=== PATIENT | male | born 1960 | race Caucasian/White ===

== ENCOUNTER → 2016-10-29 | Outpatient (CLI) | payer BC, OTHER ==
--- NOTE | 2016-10-29 13:05 | CT ---
EXAMINATION TYPE: CT chest w con DATE OF EXAM: 10/29/2016 11:26 AM COMPARISON: Radiograph 05/18/2016 HISTORY: 56-year-old male with lung mass TECHNIQUE: Contiguous axial scanning of the chest after the administration of 100 mL of Omnipaque 300 . Coronal/sagittal reconstructions performed. CT DLP: 391.9mGycm. Automatic exposure control utilized for a dose reduction. FINDINGS: The heart is normal size without pericardial effusion. Coronary vessel calcifications are present in remarkable for coronary artery disease. 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 There is conventional arch vessel branching anatomy. No thoracic lymphadenopathy by CT size criteria. Calcified left hilar lymph nodes compatible with ramona or granulomatous disease. The peripheral left basilar nodular density on recent radiographs corresponds to a 7 mm calcified gra nuloma. No consolidation or pleural effusion. No suspicious pulmonary nodule or mass. Visualized upper abdomen shows no gross of pneumonia. Bones: Endplate spondylosis mid to lower thoracic spine with multilevel degenerative disc disease. IMPRESSION: 1. Radiographic findings at the left hilum and peripheral left base correspond to prior granulomatous disease. No suspicious pulmonary nodule or mass. 2. Mild aneurysm ascending aorta (4.0 cm).
== END | disposition home or self-care (01) ==
LOC: RADCTMAIN 10:57
PROVIDERS: ATTEND Internal Medicine Critical Care Medicine
DX: R91.8 Other nonspecific abnormal finding of lung field (principal)
CPT/HCPCS: 71260; Q9967

== ENCOUNTER 2021-09-19 11:50 | Day surgery (SDC) | payer BC, OTHER ==
[2021-09-16 14:53] VITALS: BMI 25.4
[~2021-09-19 11:50] MED LIST: LACTATED RINGERS 1,000 ML IV SCH
[2021-09-19 12:13] VITALS: TEMP 97.2
[2021-09-19] MEDS ORDERED: PROPOFOL 10 MG/ML 20 ML VIAL IV ONE (12:41)
[2021-09-19] MEDS ORDERED: LIDOCAINE 1% INJ 10MG/ML (20 ML MDV) ONE (12:41)
--- NOTE | 2021-09-19 13:01 | P.PCN ---
Date of Procedure: 09/19/21 Procedure(s) Performed: Brief history: Patient is a pleasant 61-year-old white female scheduled for an elective upper endoscopy as well as colonoscopy as a part of evaluation of GERD/Sabillon's esophagus and screening for colon cancer Procedure performed: Esophagogastroduodenoscopy with biopsy Colonoscopy with biopsy Preoperative diagnosis: GERD/Sabillon's esophagus Screening for colon cancer Anesthesia: MAC Procedure: After informed consent was obtained from the patient was brought into the en doscopy unit and IV sedation was administered by anesthesia under continuous monitoring. Initially upper endoscopy was done. The Olympus GF 160 video endoscope was inserted inserted into the mouth and esophagus intubated without any difficulty and was gradually advanced into the stomach and duodenum and carefully examined. The bulb and second part of the duodenum appeared normal. The scope was then withdrawn into the stomach adequately insufflated with air and upon careful examination the antrum and body, cardia and fundus appeared normal. The scope was then withdrawn into the esophagus. Small sliding type hiatal hernia noted. The GE junction was located at 40 cm to the incisors. There were superficial erosions at the GE junction consistent with LA grade B reflux esophagitis. The short segment of Sabillon's esophagus with a tongue of Sabillon's appearing mucosa extending 5 cm proximal to the GE junction that was biopsied. Rest of the esophagus appeared normal. Patient tolerated the procedure well. At this time the patient continued to remain sedation. Initial digital rectal examination was normal. Olympus CF 160 video colonoscope was then inserted into the rectum and gradually advanced to the cecum without any difficulty. Careful examination was performed as the scope was gradually being withdrawn. The prep was excellent. The cecum, ascending colon appeared normal. The transverse colon there was a 3 mm polyp that was removed by cold biopsy. In the sigmoid colon there was a 5 mm polyp removed by cold biopsy. Rest of the, transverse colon, descending colon, sigmoid colon and rectum appeared normal. Scattered sigmoid diverticulosis seen. Retroflexion was performed in the rectum and no lesions were noted. Patient tolerated the procedure well. Impression: 1. Upper Endoscopy revealed short segment Sabillon's esophagus, small hiatal hernia and LA grade B reflux esophagitis 2. Colonoscopy revealed 5 mm transverse colon polyp and a 3 mm sigmoid colon polyp status post cold biopsy and Moderate sigmoid diverticulosis Recommendations: Findings of this examination were discussed with the patient as well as her family. He was advised to follow with the biopsy results. He will continue with omeprazole 20 mg daily and follow antireflux measures. If the biopsy of the colon polyps with adenoma he can have a repeat colonoscopy in 5 years
[2021-09-19 13:06] VITALS: PULSE 50
[2021-09-19 13:25] VITALS: BP 131/74; RESP 16
== END 2021-09-19 13:52 | disposition home or self-care (01) ==
LOC: ORWHC2ENDO 11:50
PROVIDERS: ATTEND Internal Medicine Gastroenterology
DX: Z12.11 Encounter for screening for malignant neoplasm of colon (principal); D12.5 Benign neoplasm of sigmoid colon; D12.3 Benign neoplasm of transverse colon; K57.30 Diverticulosis of large intestine without perforation or abscess without bleeding; K22.70 Barrett's esophagus without dysplasia; K21.00 Gastro-esophageal reflux disease with esophagitis, without bleeding; K44.9 Diaphragmatic hernia without obstruction or gangrene; I10 Essential (primary) hypertension; E78.5 Hyperlipidemia, unspecified; Z87.442 Personal history of urinary calculi; Z87.19 Personal history of other diseases of the digestive system; Z79.899 Other long term (current) drug therapy
CPT/HCPCS: 88305; 45380; 43239; J2001; J2704

== ENCOUNTER 2025-02-21 08:10 | Day surgery (SDC) | payer BC, OTHER ==
[2025-02-21 08:41] VITALS: RESP 16; TEMP 97.2
[2025-02-21] MEDS: LACTATED RINGERS 1,000 ML IV SCH (08:45)
[2025-02-21] MEDS: LIDOCAINE 1% (10MG/ML) FOR IV START INTRADERMA STA (08:46)
[2025-02-21] MEDS: IV FLUID CONTINUATION 1,000 ML IV ONE (08:46)
[2025-02-21] MEDS ORDERED: LIDOCAINE 1% INJ 10MG/ML (20 ML MDV) ONE (09:36)
[2025-02-21] MEDS ORDERED: PROPOFOL 10 MG/ML 20 ML VIAL IV ONE (09:36)
--- NOTE | 2025-02-21 09:58 | P.PCN ---
Date of Procedure: 02/21/25 Procedure(s) Performed: BRIEF HISTORY: Patient is a 64-year-old, pleasant, white man scheduled for an upper endoscopy as above evaluation of longstanding history of GERD/Sabillon's esophagus and intermittent dysphagia to solids. PROCEDURE PERFORMED: Esophagogastroduodenoscopy with biopsy.. PREOPERATIVE DIAGNOSIS: GERD/Sabillon's esophagus/intermittent dysphagia to solids. IV sedation per anesthesia. PROCEDURE: After informed consent was obtained, the patient was brought into the endoscopy unit. IV sedation was administered by Anesthesia under continuous monitoring. Initially the Olympus GIF-140 video endoscope was inserted into the mouth. Esophagus intubated without any difficulty. It was gradually advanced into the stomach and duodenum and carefully examined. The bulb and the second part of the duodenum appeared normal. The scope at this time was withdrawn to the stomach, adequately insufflated with air, and upon careful examination, mucosa of the antrum, body, cardia and the fundus appeared normal. The scope was then withdrawn into the esophagus. Small hiatal hernia noted. The GE junction was located at 41 cm from the incisors. There was a long segment of Sabillon's esophagus extending from the neck to 41 cm from the incisors and multiple biopsies were done from this area. The esophagus appeared normal. There were no erosions or ulcerations seen and the patient tolerated the procedure well. IMPRESSION: 1. 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 2. Small hiatal hernia. RECOMMENDATIONS: The findings of this examination were discussed with the patient as well as his family. He was advised to follow the biopsy results. If the biopsy does not show evidence of dysplasia, he can have repeat upper endoscopy in 3 years..
[2025-02-21 10:16] VITALS: BP 133/72; PULSE 45
== END 2025-02-21 10:38 | disposition home or self-care (01) ==
LOC: ORWHC2ENDO 08:10
PROVIDERS: ATTEND Internal Medicine Gastroenterology
DX: K22.70 Barrett's esophagus without dysplasia (principal); K44.9 Diaphragmatic hernia without obstruction or gangrene; K21.9 Gastro-esophageal reflux disease without esophagitis; I10 Essential (primary) hypertension; E78.5 Hyperlipidemia, unspecified; I49.9 Cardiac arrhythmia, unspecified; M19.90 Unspecified osteoarthritis, unspecified site; Z79.899 Other long term (current) drug therapy
CPT/HCPCS: 43239; J2003; J2704; 88305